=== PATIENT | male | born 1985 | race Caucasian/White ===

== ENCOUNTER 2017-04-15 00:45 | Emergency (ER) | payer OTHER ==
[~2017-04-15] VITALS: Ht 160 cm; Wt 70.7 kg
[~2017-04-15 00:45] MED LIST: SERT-234
[2017-04-15 00:50] VITALS: TEMP 36.3; Ht 160 cm; Wt 70.7 kg
[2017-04-15] MEDS ORDERED: DiphenhydrAMINE HCL 50 MG/ML VIAL IV STA (00:59)
[2017-04-15] MEDS ORDERED: METOCLOPRAMIDE HCL INJ 5 MG/ML 2 ML VIAL IM STA (00:59)
[2017-04-15] MEDS ORDERED: KETOROLAC TROMETHAMINE 30 MG/ML VIAL IV STA (00:59)
--- NOTE | 2017-04-15 01:04 | EMERGENCY ROOM VISIT NOTE ---
History Report prepared by Roddyibe: Christy Arzola Under the Supervision of: Dr. Minor Ch D.O. First contact with patient: 00:53 Chief Complaint: HEADACHE Stated Complaint: SEVERE HEADACHE, NAUSEA History of Present Illness The patient is a 31 year old male who presents to the Emergency Room with complaints of a persistent headache that began suddenly around 2300 this evening. He currently rates his discomfort as a 9/10, but states that when it first started it was a 10/10 in severity. The patient states that he was lying in bed playing a game on his phone when the pain began suddenly. He localizes his pain to the occipital part of his head. The patient denies any trauma. He denies any trouble with his vision or speech. The patient reports nausea, but denies any vomiting. He denies any personal history of headaches. The patient denies any family history of stroke or brain tumors. He states that he took 4 Advil, 3 Tylenol and 1 Prilosec without relief of his symptoms. The patient denies having any active medical problems. Source of History: patient Onset: 2300 this evening Position: head Symptom Intensity: 9/10 Quality: ache Timing: other (persistent, suddenly) Associated Symptoms: + nausea, No vomiting Review of Systems See HPI for pertinent positives and negatives. A total of ten systems were reviewed and were otherwise negative. Past Medical & Surgical Medical Problems: (1) No active medical problems Family History No pertinent family history stated. Social History Smoking Status: Never Smoker Marital Status: single Occupation Status: employed Current/Historical Medications Scheduled Omeprazole (Prilosec), 20 MG PO DAILY Allergies Coded Allergies: Erythromycin (Verified Adverse Reaction, Mild, INTOLERANCE TO EES LIQUID, CAN TAKE KENNETH TABS, 04/15/17) Macrolides (Verified Adverse Reaction, Mild, INTOLERANCE TO EES LIQUID, CAN TAKE KENNETH TABS, 04/15/17) No Known Allergies (Verified , 11/25/05) Physical Exam Vital Signs Date Time Temp Pulse Resp B/P (MAP) Pulse Ox O2 Delivery O2 Flow Rate FiO2 04/15/17 01:10 93 21 96 04/15/17 01:08 146/95 04/15/17 01:05 91 22 96 04/15/17 01:03 104 04/15/17 00:50 36.3 90 18 154/100 96 Room Air Physical Exam GENERAL: Awake, alert, well-appearing, in no distress HENT: Normocephalic, atraumatic. Oropharynx unremarkable. EYES: Normal conjunctiva. Sclera non-icteric. NECK: Supple. No nuchal rigidity. FROM. No JVD. RESPIRATORY: Clear to auscultation. CARDIAC: Regular rate, normal rhythm. Extremities warm and well perfused. Pulses equal. ABDOMEN: Soft, non-distended. No tenderness to palpation. No rebound or guarding. No masses. RECTAL: Deferred. MUSCULOSKELETAL: Chest examination reveals no tenderness. The back is symmetrical on inspection without obvious abnormality. There is no CVA tenderness to palpation. No joint edema. LOWER EXTREMITIES: Calves are equal size bilaterally and non-tender. No edema. No discoloration. NEURO: Normal sensorium. No sensory or motor deficits noted. SKIN: No rash or jaundice noted. Medical Decision & Procedures ER Provider Diagnostic Interpretation: CT: Radiology results as stated below per my review and radiologist interpretation CT HEAD: No acute intracranial process. Radiologist: Benjamin Cast MD Study ready at 0127 and initial results transmitted at 0132 Laboratory Results 04/15/17 01:05 Red Blood Count 4.89, Mean Corpuscular Volume 86.1, Mean Corpuscular Hemoglobin 30.9, Mean Corpuscular Hemoglobin Concent 35.9, Mean Platelet Volume 8.9, Neutrophils (%) (Auto) 71.1, Lymphocytes (%) (Auto) 18.6, Monocytes (%) (Auto) 8.4, Eosinophils (%) (Auto) 1.1, Basophils (%) (Auto) 0.4, Neutrophils # (Auto) 7.47, Lymphocytes # (Auto) 1.96, Monocytes # (Auto) 0.88, Eosinophils # (Auto) 0.12, Basophils # (Auto) 0.04 04/15/17 01:38 Test 04/15/17 01:05 04/15/17 01:38 White Blood Count 10.51 K/uL (4.8-10.8) Red Blood Count 4.89 M/uL (4.7-6.1) Hemoglobin 15.1 g/dL (14.0-18.0) Hematocrit 42.1 % (42-52) Mean Corpuscular Volume 86.1 fL (80-100) Mean Corpuscular Hemoglobin 30.9 pg (25-34) Mean Corpuscular Hemoglobin Concent 35.9 g/dl (32-36) Platelet Count 281 K/uL (130-400) Mean Platelet Volume 8.9 fL (7.4-10.4) Neutrophils (%) (Auto) 71.1 % Lymphocytes (%) (Auto) 18.6 % Monocytes (%) (Auto) 8.4 % Eosinophils (%) (Auto) 1.1 % Basophils (%) (Auto) 0.4 % Neutrophils # (Auto) 7.47 K/uL (1.4-6.5) Lymphocytes # (Auto) 1.96 K/uL (1.2-3.4) Monocytes # (Auto) 0.88 K/uL (0.11-0.59) Eosinophils # (Auto) 0.12 K/uL (0-0.5) Basophils # (Auto) 0.04 K/uL (0-0.2) RDW Standard Deviation 40.5 fL (36.4-46.3) RDW Coefficient of Variation 12.8 % (11.5-14.5) Immature Granulocyte % (Auto) 0.4 % Immature Granulocyte # (Auto) 0.04 K/uL (0.00-0.02) Prothrombin Time 10.9 SECONDS (9.0-12.0) Prothromb Time International Ratio 1.0 (0.9-1.1) Activated Partial Thromboplast Time 29.2 SECONDS (21.0-31.0) Partial Thromboplastin Ratio 1.1 Anion Gap 7.0 mmol/L (3-11) Est Creatinine Clear Calc Drug Dose 94.6 ml/min Estimated GFR () 116.3 Estimated GFR (Non- 100.4 BUN/Creatinine Ratio 19.4 (10-20) Calcium Level 9.3 mg/dl (8.5-10.1) Total Bilirubin 0.5 mg/dl (0.2-1) Direct Bilirubin 0.2 mg/dl (0-0.2) Aspartate Amino Transf (AST/SGOT) 32 U/L (15-37) Alanine Aminotransferase (ALT/SGPT) 71 U/L (12-78) Alkaline Phosphatase 90 U/L (45-117) Total Protein 8.4 gm/dl (6.4-8.2) Albumin 4.3 gm/dl (3.4-5.0) Laboratory results reviewed by me Medications Administered Medications (Trade) Dose Ordered Sig/Michelle Route Start Time Stop Time Status Last Admin Dose Admin Diphenhydramine HCl (Benadryl Inj) 50 mg NOW STAT IV 04/15/17 00:59 04/15/17 01:02 DC 04/15/17 01:26 50 MG Ketorolac Tromethamine (Toradol Inj) 30 mg NOW STAT IV 04/15/17 00:59 04/15/17 01:02 DC 04/15/17 01:30 30 MG Metoclopramide HCl (Reglan Inj) 10 mg NOW STAT IV 04/15/17 01:41 04/15/17 01:43 DC 04/15/17 01:47 10 MG ED Course 0054: The patient was evaluated in room B3B. A complete history and physical exam was performed. 0059: Ordered Toradol Inj 30 mg IV, Reglan Inj 10 mg IV, Benadryl Inj 50 mg IV. 0244: I reevaluated the patient and he is resting comfortably. I discussed the exam findings with him and I discussed the treatment plan. He verbalized complete understanding and agreement. He is ready to go home. Medical Decision Differential diagnosis: Etiologies such as migraine headache, sinusitis, ICH, SAH, infection, tumor, headache, sinus thrombosis, as well as others were entertained. Patient is much improved on repeat examination I do not suspect meningitis or subarachnoid hemorrhage. I have discussed the workup with the patient patient' s family bedside Medication Reconcilliation Current Medication List: was personally reviewed by me Blood Pressure Screening Patient's blood pressure: Elevated blood pressure Blood pressure disposition: Referred to PCP The patient's blood pressure will continue to be rechecked. Impression Primary Impression: Acute headache Scribe Attestation The scribe's documentation has been prepared under my direction and personally reviewed by me in its entirety. I confirm that the note above accurately reflects all work, treatment, procedures, and medical decision making performed by me. Departure Information Dispostion Home / Self-Care Referrals Brad Uribe M.D. (PCP) Patient Instructions ED Headache Tension, My [facility]
[2017-04-15 01:08] VITALS: BP 146/95
[2017-04-15 01:10] VITALS: PULSE 93; O2SAT 96
[2017-04-15 01:22] LABS: BASO % 0.4 %; BASO ABS # 0.04 K/uL (0-0.2); COMPLETE YES; EOS % 1.1 %; HEMATOCRIT 42.1 % (42-52); IG% 0.4 %; LYMPH % 18.6 %; LYMPH ABS # 1.96 K/uL (1.2-3.4); MEAN CELL VOLUME 86.1 fL (80-100); MEAN CORPUSCULAR HEMOGLOBIN 30.9 pg (25-34); MEAN CORPUSCULAR HGB CONC 35.9 g/dl (32-36); MEAN PLATELET VOLUME 8.9 fL (7.4-10.4); MONO % 8.4 %; NEUT % 71.1 %; PLATELET COUNT 281 K/uL (130-400); RED BLOOD COUNT 4.89 M/uL (4.7-6.1); WHITE BLOOD COUNT 10.51 K/uL (4.8-10.8)
[2017-04-15 01:33] LABS: PARTIAL THROMBOPLASTIN RATIO 1.1; PROTHROMBIN TIME (PATIENT) 10.9 SECONDS (9.0-12.0)
[2017-04-15] MEDS ORDERED: PRLSR20 PO (01:38)
[2017-04-15] MEDS ORDERED: METOCLOPRAMIDE HCL INJ 5 MG/ML 2 ML VIAL IV STA (01:41)
[2017-04-15 03:34] LABS: BUN/CREATININE RATIO 19.4 (10-20); CALCIUM 9.3 mg/dl (8.5-10.1); CREATININE 0.99 mg/dl (0.60-1.40); POTASSIUM 3.7 mmol/L (3.5-5.1)
--- NOTE | 2017-04-15 07:03 | DIAGNOSTIC IMAGING REPORT ---
HEAD WITHOUT CONTRAST (CT) CLINICAL HISTORY: 31 years-old Male presenting with sudden severe headache at the posterior skull, nausea, no trauma or injury. TECHNIQUE: Multidetector CT imaging of the head was performed without the use of intravenous contrast. IV contrast: None. A dose lowering technique was used consistent with the principles of ALARA (as low as reasonably achievable). COMPARISON: 05/10/2006. CT DOSE (mGy.cm): The estimated cumulative dose is 537.48 mGy.cm. FINDINGS: Financial Quantitative Analyst topogram: Unremarkable. Ventricles and sulci normal in size. Mildly prominent and asymmetric CSF space anterior to the left temporal lobe, possibly small arachnoid cyst. This is unchanged from prior. Brain parenchyma normal in appearance with preserved sanchez-white differentiation. No mass effect or midline shift. No hemorrhage or acute territorial infarct. No extra-axial fluid collection. Minimal mucosal thickening in the sphenoid sinus. Leftward nasal septal deviation. Calvarium intact. IMPRESSION: 1. No acute intracranial pathology. Electronically signed by: Jefferson Vee M.D. 04/15/2017 7:02 AM Dictated Date/Time: 04/15/2017 6:58 AM
== END 2017-04-15 02:45 | disposition home or self-care (01) ==
LOC: C.EDB 00:46
DX: R51 Headache (principal)